=== PATIENT | female | born 1970 | race Caucasian/White ===

== ENCOUNTER 2017-05-19 22:05 | Emergency (ER) | payer SELFPAY ==
[~2017-05-19] VITALS: Ht 167.6 cm; Wt 58.0 kg
[~2017-05-19 22:05] MED LIST: PHEN-549 PO
[2017-05-19 22:24] VITALS: Ht 167.6 cm; Wt 58.0 kg
== END 2017-05-20 00:15 | disposition left against medical advice (07) ==
LOC: FTE 22:05
DX: Z53.21 Procedure and treatment not carried out due to patient leaving prior to being seen by health care provider (principal)